=== PATIENT | female | born 1935 | race Caucasian/White ===

== ENCOUNTER 2023-04-18 06:04 | Day surgery (SDC) | payer OTHER ==
[2023-04-18] MEDS ORDERED: NA CHLORIDE 0.9% 1,000 ML ONE (06:40)
[2023-04-18] MEDS ORDERED: DEXTROSE 10%-WATER 500 ML IV ONE (06:44)
[2023-04-18] MEDS ORDERED: propofoL 200 MG/20 ML VIAL IV ONE (07:29)
[2023-04-18] MEDS ORDERED: LIDOCAINE 2% MPF 5 ML VIAL ONE (07:33)
[2023-04-18] MEDS ORDERED: SUCCINYLCHOLINE 20 MG/ML (10 ML) IV ONE (07:34)
[2023-04-18] MEDS ORDERED: NA CHLORIDE 0.9% 250 ML ONE (07:42)
[2023-04-18 09:19] VITALS: TEMP 97.2
[2023-04-18 09:20] VITALS: O2SAT 95
[2023-04-18 09:23] VITALS: BP 155/69
--- NOTE | 2023-04-19 22:58 | OP ---
Date of Procedure: 04/18/2023 Surgeon: CHEPE WILLSON Preoperative Diagnosis: Obstructive sleep apnea. Postoperative Diagnosis: Obstructive sleep apnea. Procedure: Drug-induced sleep endoscopy. Anesthesia: General anesthesia was administered via IV sedation with propofol. Estimated Blood Loss: None. Specimens: None. Findings: At least 80% anterior/posterior velopharyngeal collapse with approximately 20% lateral maura opharyngeal collapse, but no complete concentric collapse noted. Mild-moderate right nasal septal de viation with bilateral inferior turbinate hypertrophy 2+/4. Complications: None. Disposition: Stable. The patient tolerated the procedure well. Indication For Procedure: The patient is a pleasant 87-year-old female with a history of dementia, w ho has been on CPAP therapy for several years and has not tolerated the mask in the past 6 months to 1 year secondary to forgetting the putting the mask on and then at times pulling the mask off at nigh t and forgetting to remember to put it back on. Her daughter has noticed that this has been a chroni c issue and the patient is not getting adequate sleep despite adequate sleep hygiene measures. The p atient has irritability and worsening of her memory secondary to fatigue from lack of sleep. She has a daughter and grain oilseed or pasture farm worker and is well cared for independently in her residential home. The daughter does live with the patient. These were indications to bring the patient to operative suite for the a florentino-mentioned procedures. Her grain oilseed or pasture farm worker and daughter understood. All questions were answered. Ris ks versus benefits and complications were explained in detail, and a consent form was signed which wa s placed in the chart. The patient is being scoped for possible Inspire implant device insertion, wh ich requires a drug-induced sleep endoscopy. Description Of Procedure: The patient was transferred from the preoperative holding area to the oper ative suite by Department of Anesthesia, placed on the operating table supine and sedated with IV pro pofol. Once the patient was asleep, I inserted the flexible nasopharyngoscope into the right nasal c avity, but the patient had a moderate septal deviation complicated by inferior turbinate hypertrophy. Thus, I removed the scope and switched to the left nasal cavity. The scope was advanced along the floor back to the level of the nasopharynx and oropharynx. I remained in that area for approximately 3-5 minutes. We were able to obtain adequate video representation of her inhalation and exhalation pattern. I then removed or withdrew the scope and the patient tolerated it well. The patient was transferred by Department of Anesthesia in stable condition, where she was subsequent ly awakened and transferred to the postoperative care unit in stable condition. She will be discharg ed home and will follow up for further recommendations. APOLINAR/ALINA Voice ID: [id number] Report ID: [id number]
== END 2023-04-18 08:34 | disposition home or self-care (01) ==
LOC: OR 06:04
PROVIDERS: ATTEND Otolaryngology Facial Plastic Surgery
PROC: 0CJS8ZZ Inspection of Larynx, Via Natural or Artificial Opening Endoscopic (ICD-10-PCS; principal; 2023-04-18 07:30)
DX: G47.33 Obstructive sleep apnea (adult) (pediatric) (principal); F03.90 Unspecified dementia, unspecified severity, without behavioral disturbance, psychotic disturbance, mood disturbance, and anxiety
CPT/HCPCS: 82947 ×3; 42975; J2704; J2001; J7050; J7030

== ENCOUNTER 2023-05-30 07:43 | Observation (INO) | payer OTHER ==
[2023-05-30] MEDS ORDERED: FENTANYL CITR 100 MCG/2 ML ONE ×2 (07:46→10:39)
[2023-05-30] MEDS ORDERED: dexAMETHasone 10 MG/ML VIAL ONE (07:47)
[2023-05-30] MEDS ORDERED: LIDOCAINE 2% MPF 5 ML VIAL ONE (07:47)
[2023-05-30] MEDS ORDERED: ROCURONIUM 50 MG/5 ML VIAL IV ONE (07:47)
[2023-05-30] MEDS ORDERED: ONDANSETRON 4 MG/2 ML VIAL ONE (07:47)
[2023-05-30] MEDS ORDERED: propofoL 200 MG/20 ML VIAL IV ONE ×6 (07:47→13:29)
[2023-05-30] MEDS ORDERED: LIDOCAINE HCL/EPINEPHRINE 20 ML MDV ONE (08:18)
[2023-05-30] MEDS ORDERED: NA CHLORIDE 0.9% 1,000 ML ONE (08:20)
[2023-05-30] MEDS ORDERED: CEFAZOLIN SODIUM 1 GM/VIAL ONE ×2 (09:42)
[2023-05-30] MEDS ORDERED: propofoL 1,000 MG/100 ML VIAL IV ONE (11:03)
[2023-05-30] MEDS ORDERED: HYDRALAZINE HCL 20 MG/ML VIAL ONE (13:54)
[2023-05-30] MEDS ORDERED: Mastisol Adhesive Liq ONE (13:55)
[2023-05-30] MEDS: MORPHINE 4 MG/ML SYR ONE ×5 (14:30→14:58)
--- NOTE | 2023-05-30 15:09 | RAD REPORT ---
EXAM DESCRIPTION: RAD - Neck Soft Tissue - 05/30/2023 2:55 pm CLINICAL HISTORY: S/P INSPIRE PROCEDURE COMPARISON: No comparisons FINDINGS: Wiring is noted in the anterior soft tissues of the neck. Tip of the wiring appears in the submental region somewhat posteriorly.Upper cervical degenerative changes present with 3 mm degenera tive anterolisthesis of C3 on 4. No unusual or unexpected finding.
--- NOTE | 2023-05-30 15:09 | RAD REPORT ---
EXAM DESCRIPTION: RAD - Chest Single View - 05/30/2023 2:55 pm CLINICAL HISTORY: S/P INSPIRE PROCEDURE Chest pain. COMPARISON: <Comparisons> FINDINGS: Portable technique limits examination quality. The lungs are grossly clear. The heart is moderately enlarged. No displaced fractures.Right-sided sti mulator device noted. IMPRESSION: No acute intrathoracic process suspected.
--- OUTSIDE RECORDS SUMMARY | 2023-05-30 15:37 | XMS REPORT | Continuity of Care Document ---
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 fferent methodologies s hould not becompared to o ne another as quantitative results and URLs mayvary by method. [id number] 23:44:00 Test Item Value Reference Range Interpretation Comments HGBA1C% (test code = HGBA1C%) 7.8 %A1C 4.8-6.0 H GLUCOSE [id number] 22:19:00 Test Item Value Reference Range Interpretation Comments GLUCOSE BEDSIDE (test 151 MG/DL 70-110 H Perfor med by certified code = GLUBED) comparator operator at [facility] GLUCOSE [id number] 11:22:00 Test Item Value Reference Range Interpretation Comments GLUCOSE BEDSIDE (test 236 MG/DL 70-110 H Perfor med by certified code = GLUBED) comparator operator at [facility] GLUCOSE [id number] 06:40:00 Test Item Value Reference Range Interpretation Comments GLUCOSE BEDSIDE (test 123 MG/DL 70-110 H Perfor med by certified code = GLUBED) comparator operator at [facility] BASIC METABOLIC [id number] 01:28:00 Test Item Value Reference Range Interpretation Comments SODIUM (test code = 141 mEq/L 134-147 N NA) POTASSIUM (test code 3.8 mEq/L 3.4-5.0 N = K) CHLORIDE (test code 106 mEq/L 100-108 = CL) CARBON DIOXIDE (test 27 mEq/l 21-33 N code = CO2) ANION GAP (test code 12 0-20 N = GAP) GLUCOSE (test code = 117 mg/dL 70-110 H GLU) BLOOD UREA NITROGEN 21 mg/dL 7-18 H (test code = BUN) GLOMERULAR 16.9 70-80 L The Glomerular FILTRATION RATE Filtration R ate is a (test code = GFR) calculated parameterbased on serum Creatinine, pat ient age and sex. GFR va luesless than 60 mL/min/ 1.73 square meters a re indicative ofCh ronic Kidney Disease. Values less than 15 mL/min/1.73squa re meters indicate Kidney failure. The calculation forGFR is based on the CKD-EPI (2020) calculat ion. This formulais race indifferent and is the recommended for brittney for GFRby the [facility] Kidney Foundati on for Adults.The GFR will not calculate if th e sex is unknown or if thepatient's ag e is <18 years. CREATININE (test 2.7 mg/dL 0.6-1.3 H code = CREAT) CALCIUM (test code = 9.0 mg/dL 8.0-10.5 N CA) TROP-I HIGH [id number] 01:28:00 Test Item Value Reference Range Interpretation Comments TROP-I HIGH 203 ng/L 0-34 HH CAUTION: Units of the SENSITIVITY (test current te st methodology code = TROPIHS) (ng/L) diffe rfrom the prior test meth odology (ng/mL) by a fa ctor of 1000. 99t h Percentile Uppe r Reference Limit (URL): Fe males: 34 ng/LMales: 54 n g/L In order to distin guish acute elevations of h igh sensitivitytrop onin from other clinical conditions, the FourthUnive rsal Definition of M yocardial Infarction stressesclinica l assessment and the demonstration o f a rise and/orfall in s erial troponin result s above the URL. These resu lts were obtained using Siem[employer] IM TnI Hreagent. Results from di fferent methodologies s hould not becompared to o ne another as quantitative results and URLs mayvar y by method. CBC W/AUTO [id number] 01:07:00 Test Item Value Reference Range Interpretation Comments WHITE BLOOD CELL (test code = 8.0 x10 3/uL 4.5-11.0 N WBC) RED BLOOD CELL (test code = 3.45 x10 6/uL 3.54-5.02 L RBC) HEMOGLOBIN (test code = HGB) 10.6 g/dL 11.0-15.0 L HEMATOCRIT (test code = HCT) 31.6 % 33.0-45.0 L MEAN CELL VOLUME (test code = 91.6 fL 81.0-99.0 N MCV) MEAN CELL HGB (test code = MCH) 30.7 pg 27.0-33.0 N MEAN CELL HGB CONCETRATION 33.5 g/dL 33.0-37.0 N (test code = MCHC) RED CELL DISTRIBUTION WIDTH CV 14.1 % 11.5-14.5 N (test code = RDW) RED CELL DISTRIBUTION WIDTH SD 47.5 fL 37.0-54.0 N (test code = RDW-SD) PLATELET COUNT (test code = 170 x10 3/uL 150-400 N PLT) MEAN PLATELET VOLUME (test code 10.2 fL 7.0-9.0 H = MPV) NEUTROPHIL % (test code = NT%) 67.9 % 56.0-77.0 N IMMATURE GRANULOCYTE % (test 0.7 % 0.0-2.0 N code = IG%) LYMPHOCYTE % (test code = LY%) 19.5 % 14.0-32.0 N MONOCYTE % (test code = MO%) 8.2 % 4.8-9.0 N EOSINOPHIL % (test code = EO%) 3.2 % 0.3-3.7 N BASOPHIL % (test code = BA%) 0.5 % 0.0-2.0 N NUCLEATED RBC % (test code = 0.0 % 0-0 N NRBC%) NEUTROPHIL # (test code = NT#) 5.43 x10 3/uL 2.0-7.6 N IMMATURE GRANULOCYTE # (test 0.06 x10 3/uL 0.00-0.03 H code = IG#) LYMPHOCYTE # (test code = LY#) 1.56 x10 3/uL 1.0-3.8 N MONOCYTE # (test code = MO#) 0.66 x10 3/uL 0.1-0.8 N EOSINOPHIL # (test code = EO#) 0.26 x10 3/uL 0.0-0.2 H BASOPHIL # (test code = BA#) 0.04 x10 3/uL 0.0-0.2 N NUCLEATED RBC # (test code = 0.00 x10 3/uL 0.0-0.1 N NRBC#) MANUAL DIFF REQUIRED (test code NO = MDIFF) TROP-I HIGH [id number] 23:20:00 Test Item Value Reference Range Interpretation Comments TROP-I HIGH 128 ng/L 0-34 HH Critical result called to SENSITIVITY (test CHANDRA Rai RNby code = TROPIHS) Wendy.LA50 a t 2320 09/12/22Nurse r ead back result and tech confirmed it's correct? Y ESCAUTION: Units of the cu rrent test methodology (ng /L) differfrom the prior test methodology (ng /mL) by a factor of 1000. 99t h Percentile Uppe r Reference Limit (URL): Fe males: 34 ng/LMales: 54 n g/L In order to distin guish acute elevations of h igh sensitivitytrop onin from other clinical conditions, the FourthUnive rsal Definition of M yocardial Infarction stressesclinica l assessment and the demonstration o f a rise and/orfall in s erial troponin result s above the URL. These resu lts were obtained using [employer]ens [employer] IM TnI Hreagent. Results from di fferent methodologies s hould not becompared to o ne another as quantitative results and URLs mayvar y by method. B-TYPE NATRIURETIC [id number] 20:13:00 Test Item Value Reference Range Interpretation Comments B-TYPE NATRIURETIC PEPTIDE (test 106.0 PG/ML 0-100 H code = BNP) LIPOPROTEIN [id number] 20:12:00 Test Item Value Reference Range Interpretation Comments LIPOPROTEIN LDL 143.2 mg/dL 0-100 H <100 OPTIMAL 100-129 (test code = LDL) NEAR OPTIM AL/ABOVE [id number] HIGH>LT=580 DEE Y HIGH*Guidelines provided by the National Choles terol EducationProgra m Adult Treatment Panel III TROP-I HIGH [id number] 19:54:00 Test Item Value Reference Range Interpretation Comments TROP-I HIGH 102 ng/L 0-34 H CAUTION: Units of the SENSITIVITY (test current te st methodology code = TROPIHS) (ng/L) diffe rfrom the prior test meth odology (ng/mL) by a fa ctor of 1000. 99t h Percentile Uppe r Reference Limit (URL): Fe males: 34 ng/LMales: 54 n g/L In order to distin guish acute elevations of h igh sensitivitytrop onin from other clinical conditions, the FourthUnive rsal Definition of M yocardial Infarction stressesclinica l assessment and the demonstration o f a rise and/orfall in s erial troponin result s above the URL. These resu lts were obtained using [employer] IM TnI Hreagent. Results from di fferent methodologies s hould not becompared to o ne another as quantitative results and URLs mayvar y by method. BASIC METABOLIC [id number] 19:54:00 Test Item Value Reference Range Interpretation Comments SODIUM (test code = 137 mEq/L 134-147 N NA) POTASSIUM (test code 4.0 mEq/L 3.4-5.0 N = K) CHLORIDE (test code 100 mEq/L 100-108 N = CL) CARBON DIOXIDE (test 27 mEq/l 21-33 N code = CO2) ANION GAP (test code 14 0-20 N = GAP) GLUCOSE (test code = 278 mg/dL 70-110 H GLU) BLOOD UREA NITROGEN 20 mg/dL 7-18 H (test code = BUN) GLOMERULAR 19.4 70-80 L The Glomerular FILTRATION RATE Filtration R ate is a (test code = GFR) calculated parameterbased on serum Creatinine, pat ient age and sex. GFR va luesless than 60 mL/min/ 1.73 square meters a re indicative ofCh ronic Kidney Disease. Values less than 15 mL/min/1.73squa re meters indicate Kidney failure. The calculation forGFR is based on the CKD-EPI (2020) calculat ion. This formulais race indifferent and is the recommended for brittney for GFRby the [facility] n[facility] Kidney Foundati on for Adults.The GFR will not calculate if th e sex is unknown or if thepatient's ag e is <18 years. CREATININE (test 2.4 mg/dL 0.6-1.3 H code = CREAT) CALCIUM (test code = 8.8 mg/dL 8.0-10.5 N CA) [id number] 19:54:00 Test Item Value Reference Range Interpretation Comments MAGNESIUM (test code = MAG) 1.89 mg/dL 1.80-2.40 N TSH REFLEX TO [id number] 19:54:00 Test Item Value Reference Range Interpretation Comments TSH REFLEX TO FT4 (test code = 1.80 IU/mL 0.42-5.47 N TSHREFLEX) CBC W/AUTO [id number] 19:53:00 Test Item Value Reference Range Interpretation Comments WHITE BLOOD CELL (test code = 8.1 x10 3/uL 4.5-11.0 N WBC) RED BLOOD CELL (test code = 3.57 x10 6/uL 3.54-5.02 N RBC) HEMOGLOBIN (test code = HGB) 10.9 g/dL 11.0-15.0 L HEMATOCRIT (test code = HCT) 33.0 % 33.0-45.0 N MEAN CELL VOLUME (test code = 92.4 fL 81.0-99.0 N MCV) MEAN CELL HGB (test code = MCH) 30.5 pg 27.0-33.0 N MEAN CELL HGB CONCETRATION 33.0 g/dL 33.0-37.0 N (test code = MCHC) RED CELL DISTRIBUTION WIDTH CV 14.0 % 11.5-14.5 N (test code = RDW) RED CELL DISTRIBUTION WIDTH SD 47.7 fL 37.0-54.0 N (test code = RDW-SD) PLATELET COUNT (test code = 206 x10 3/uL 150-400 N PLT) MEAN PLATELET VOLUME (test code 10.7 fL 7.0-9.0 H = MPV) NEUTROPHIL % (test code = NT%) 75.6 % 56.0-77.0 N IMMATURE GRANULOCYTE % (test 0.9 % 0.0-2.0 N code = IG%) LYMPHOCYTE % (test code = LY%) 14.7 % 14.0-32.0 N MONOCYTE % (test code = MO%) 6.4 % 4.8-9.0 N EOSINOPHIL % (test code = EO%) 1.9 % 0.3-3.7 N BASOPHIL % (test code = BA%) 0.5 % 0.0-2.0 N NUCLEATED RBC % (test code = 0.0 % 0-0 N NRBC%) NEUTROPHIL # (test code = NT#) 6.11 x10 3/uL 2.0-7.6 N IMMATURE GRANULOCYTE # (test 0.07 x10 3/uL 0.00-0.03 H code = IG#) LYMPHOCYTE # (test code = LY#) 1.19 x10 3/uL 1.0-3.8 N MONOCYTE # (test code = MO#) 0.52 x10 3/uL 0.1-0.8 N EOSINOPHIL # (test code = EO#) 0.15 x10 3/uL 0.0-0.2 N BASOPHIL # (test code = BA#) 0.04 x10 3/uL 0.0-0.2 N NUCLEATED RBC # (test code = 0.00 x10 3/uL 0.0-0.1 N NRBC#) MANUAL DIFF REQUIRED (test code NO = MDIFF) - XR CHEST 1 [id number] 00:00:00 [facility] : 1935 Sex: F FAX: David Castillo [place]: [address]: REG Name: MNOICA BAUTISTA [facility] : 1935 Age/S: 86/F [address] [place] [address] Bl Unit #: [id number] Loc: [place] [address] Phys: David Castillo MD Acct: [id number] Dis Date: Status: REG ER PHONE #: [phone] Exam Date: 09/12/2022 183 FAX #: [phone] Reason: Chest Pain EXAMS: CPT CODE: [id number] XR CHEST 1 V [id number] PROCEDURE INFORMATION: Exam: XR Chest Exam date and time: 09/12/2022 6:31 PM Age: 86 years old Clinical indication: Other: Chest pain TECHNIQUE: Imaging protocol: Radiologic exam of the chest. Views: 1 view. COMPARISON: No relevant prior studies available. FINDINGS: Lungs: The thorax shows mildly decreased lung volumes. No focal lung consolidation. Pleural spaces: No appreciable effusions or pneumothorax. Mildly elevated right hemidiaphragm, probably chronic. Heart/Mediastinum: Heart is borderline size. Calcified plaques in aortic arch. The pulmonary vasculature is normal. The trachea is midline. Bones/joints: No acute abnormality seen. IMPRESSION: No acute cardiopulmonary findings. at 1929 Reported and signed by: Sarbjit Dumont M.D. CC: David Castillo MD Technologist: Vanessa Alfaro RT(R) Trnscrd Date/Time/By: 09/12/2022 (1928) : By: [email or web address] Orig Print D/T: S: 09/12/2022 (1928) PAGE 1 Signed Report
[2023-05-30 16:01] VITALS: BMI 30.6
[2023-05-30] MEDS: CEFAZOLIN 2 GM in NA CHLORIDE 0.9% 100 ML IVPB SCH (16:34)
[2023-05-30] MEDS ORDERED: INFLUENZA VACCINE (for 6+ mo) 0.5 ML DOSE IMVAC ONE (18:00)
[2023-05-30] MEDS ORDERED: HYDROCODONE/APAP 5/325 MG TAB PO PRN (18:09)
[2023-05-30] MEDS ORDERED: FUROSEMIDE 40 MG TABLET PO SCH (19:00)
[2023-05-30] MEDS: TRAMADOL HCL 50 MG TAB PO PRN (20:37)
[2023-05-30] MEDS ORDERED: GLUCAGON 1 MG/VIAL IM PRN (20:52)
[2023-05-30] MEDS ORDERED: D50W 25 GM/50 ML SYRINGE IV PRN (20:52)
[2023-05-30] MEDS ORDERED: D10W 125 ML IV PRN (21:00)
[2023-05-30] MEDS ORDERED: LATANOPROST OPTH SCH (21:00)
[2023-05-30] MEDS ORDERED: ISOSORBIDE MONONITRATE 120 MG PO SCH (21:00)
[2023-05-30] MEDS ORDERED: DONEPEZIL HCL 5 MG TAB PO SCH (21:00)
[2023-05-30] MEDS: INSULIN REGULAR (HUMAN) 100 UNIT/ML SQ SCH (21:32)
[2023-05-30] MEDS: HYDRALAZINE HCL 25 MG TABLET PO SCH (21:32)
[2023-05-30] MEDS ORDERED: MORPHINE 2 MG/ML SYR IV PRN (23:09)
[2023-05-31 00:21] VITALS: O2SAT 94
[2023-05-31] MEDS: CEFAZOLIN 2 GM in NA CHLORIDE 0.9% 100 ML IVPB SCH ×3 (00:26→17:07)
[2023-05-31 03:06] LABS: Absolute Lymphocytes (CBC) 0.6 K/uL (0.7-4.9); Hematocrit 32.8 % (36.0-45.0); Lymphocytes % 5.6 % (15.3-44.8); MCV 93.2 fL (80-100); MPV 9.5 fL (7.6-11.3); Platelets 155 thou/uL (152-406); RBC Red Blood Cell Count 3.52 M/uL (3.86-4.86)
[2023-05-31 03:30] LABS: Potassium 4.8 mEq/L (3.5-5.1)
[2023-05-31] MEDS: INSULIN REGULAR (HUMAN) 100 UNIT/ML SQ SCH ×3 (07:30→16:30)
[2023-05-31] MEDS: SEVELAMER HCL 800 MG PO SCH ×3 (08:00→17:00)
[2023-05-31] MEDS ORDERED: Linagliptin [Tradjenta] 5 MG Tablet PO SCH (09:00)
[2023-05-31] MEDS ORDERED: AMLODIPINE 10 MG TAB PO SCH (09:00)
[2023-05-31] MEDS ORDERED: VALSARTAN 80 MG TAB PO SCH (09:00)
[2023-05-31] MEDS ORDERED: GALANTAMINE HBR 16 MG PO SCH (09:00)
[2023-05-31] MEDS: HYDRALAZINE HCL 25 MG TABLET PO SCH ×2 (09:39→14:00)
--- NOTE | 2023-05-31 11:32 | P.CNS ---
Date of Consult: 05/31/23 Reason for Consult: ESRD, BP/volume management Requesting Physician: Olman Fang Chief Complaint: Elective admission for hypoglossal nerve stimulator implant History of Present Illness: Pt is a 87 yo elderly female with a hx of chronic HTN, DM with unspecified complications other than ESRD on iHD MWF at [facility] who was admitted electively for a hypoglossal nerve stimulator implant for LUIS A. Pt is in stable condition post surgery, she denies any significant pain, no reported bleeding from surgical sites and no dysphagia. She denies CP or dyspnea. Allergies acetaminophen Allergy (Verified 05/30/23 09:30) Facial Swelling streptomycin Allergy (Verified 05/30/23 09:30) Swelling/Nausea/Vomiting Home Medications: Amlodipine Besylate 10 mg PO DAILY 04/15/23 Donepezil [Aricept*] 5 mg PO BEDTIME 04/15/23 Furosemide [Lasix*] 40 mg PO DIRECTED 04/15/23 Galantamine HBr [Galantamine ER] 16 mg PO DAILY 04/15/23 Glimepiride 4 mg PO BID 04/15/23 Hydralazine HCl 100 mg PO TID 04/15/23 Isosorbide Mononitrate [Isosorbide Mononitrate ER] 2 tab PO BEDTIME 04/15/23 Latanoprost Ophth [Xalatan 0.005%*] 2.5 ml EACH EYE BEDTIME 04/15/23 Linagliptin [Tradjenta] 5 mg PO DAILY 04/15/23 Sevelamer HCl [Renagel] 800 mg PO TIDWM 04/15/23 Valsartan [Diovan] 80 mg PO DAILY 04/15/23 - Social History Alcohol use: No CD- Drugs: No Caffeine use: Yes Place of Residence: Home Review of Systems General: Unremarkable Eyes: Unremarkable ENT: As per HPI Respiratory: Unremarkable Cardiovascular: Unremarkable Gastrointestinal: Unremarkable Musculoskeletal: Unremarkable Integumentary: Unremarkable Neurological: Unremarkable Physical Examination Temp Pulse Resp BP Pulse Ox 97.0 F 75 17 156/71 H 92 05/31/23 08:00 05/31/23 09:40 05/31/23 08:00 05/31/23 09:40 05/31/23 08:00 General: Alert, In no apparent distress, Cooperative HEENT: Normocephalic, EOMI Neck: Other (Surgical sites covered with dressing, no drains noted) Respiratory: Normal air movement, Other (No rhonchi) Cardiovascular: Regular rate/rhythm, Normal S1 S2 Gastrointestinal: Soft and benign, Non-distended, No tenderness Musculoskeletal: No swelling, No tenderness Integumentary: No rashes Neurological: Normal speech, Normal affect Laboratory Data (last 24 hrs) 05/31/23 05/31/23 02:00 02:00 WBC 10.80 Hgb 11.0 L Hct 32.8 L Plt Count 155 Sodium 133 L Potassium 4.8 BUN 52 H Creatinine 5.13 H Glucose 320 H Conclusions/Impression: A/P) 1. ESRD 2nd to chronic conditions, on iHD MWF -will plan for HD today to maintain OP schedule. See orders for details 2. Pre dialysis metab profile stable 3. Chronic HTN with CKD/ESRD -f/u post HD BP, BP can be accelerated at times, cont home meds 4. Type II DM with hyperglycemia -need to review pt's home insulin regimen and restart any basal Insulin as BG here have been > 200 last night and overnight although lower this AM. Cosmo Fields MD, AMIRAH
--- NOTE | 2023-05-31 12:07 | P.HP ---
Certification for Inpatient Patient admitted to: Observation With expected LOS: <2 Midnights Practitioner: I am a practitioner with admitting privileges, knowledge of patient current condition, hospital course, and medical plan of care. Services: Services provided to patient in accordance with Admission requirements found in Title 42 Section 412.3 of the Code of Federal Regulations Patient History Date of Service: 05/31/23 Reason for admission: Elective admission for hypoglossal nerve stimulator implant History of Present Illness: Patient is 87 years of age was referred to Dr. Rosa for evaluation for inspire she is hypoglossal nerve stimulator currently was a prolonged surgery patient remained stable was admitted for observation to the hospital this morning she is alert oriented responsive cooperative denies any complaints history of sleep apnea failed CPAP treatment denies any pain Allergies acetaminophen Allergy (Verified 05/30/23 09:30) Facial Swelling streptomycin Allergy (Verified 05/30/23 09:30) Swelling/Nausea/Vomiting Home Medications: Amlodipine Besylate 10 mg PO DAILY 04/15/23 Donepezil [Aricept*] 5 mg PO BEDTIME 04/15/23 Furosemide [Lasix*] 40 mg PO DIRECTED 04/15/23 Galantamine HBr [Galantamine ER] 16 mg PO DAILY 04/15/23 Glimepiride 4 mg PO BID 04/15/23 Hydralazine HCl 100 mg PO TID 04/15/23 Isosorbide Mononitrate [Isosorbide Mononitrate ER] 2 tab PO BEDTIME 04/15/23 Latanoprost Ophth [Xalatan 0.005%*] 2.5 ml EACH EYE BEDTIME 04/15/23 Linagliptin [Tradjenta] 5 mg PO DAILY 04/15/23 Sevelamer HCl [Renagel] 800 mg PO TIDWM 04/15/23 Valsartan [Diovan] 80 mg PO DAILY 04/15/23 - Past Medical/Surgical History -: Dialysis -: Sleep apnea -: Diabetes -: Hypoglossal nerve implantation - Social History Smoking Status: Never smoker Alcohol use: No CD- Drugs: No Caffeine use: Yes Place of Residence: Home Review of Systems 10-point ROS is otherwise unremarkable Physical Examination - Vital Signs Temperature: 97.0 F Blood Pressure: 156/71 Pulse: 75 Respirations: 17 Pulse Ox (%): 92 - Physical Exam General: Alert, Oriented x3 Respiratory: Clear to auscultation bilaterally Cardiovascular: No edema, Regular rate/rhythm, Normal S1 S2 - Studies Laboratory Data (last 24 hrs) 05/31/23 05/31/23 02:00 02:00 WBC 10.80 Hgb 11.0 L Hct 32.8 L Plt Count 155 Sodium 133 L Potassium 4.8 BUN 52 H Creatinine 5.13 H Glucose 320 H Assessment and Plan - Problems (Diagnosis) (1) Obstructive sleep apnea Current Visit: Yes Status: Acute Plan: Patient is 87 years of age with a history of obstructive sleep apnea failed CPAP therapy was admitted for hypoglossal nerve implantation by Dr. Rosa procedure according to Dr. Rosa was complicated took longer than usual she was admitted to the hospital for observation there was no problems during the stay patient to have her dialysis and discharged home follow-up with Dr. Rosa and myself denies any pain there is no evidence of any bleeding Labs reviewed Discharge Plan: Home - Advance Directives Does patient have a Living Will: No Does patient have a Durable POA for Healthcare: No
--- NOTE | 2023-05-31 12:10 | P.DS ---
Admission Date: 05/30/23 Discharge Date: 05/31/23 Disposition: ROUTINE DISCHARGE Discharge Condition: FAIR Reason for Admission: Elective admission for hypoglossal nerve stimulator implant - Problems (1) Obstructive sleep apnea Current Visit: Yes Status: Acute Brief History of Present Illness: Patient is 87 years of age was referred to Dr. Rosa for evaluation for inspire she is hypoglossal nerve stimulator currently was a prolonged surgery patient remained stable was admitted for observation to the hospital this morning she is alert oriented responsive cooperative denies any complaints history of sleep apnea failed CPAP treatment denies any pain Hospital Course: Patient is 87 years of age please see my H&P from today she was admitted for hypoglossal nerve implantation surgery took longer than usual patient was admitted here for observation her observation was unremarkable her vital signs all stable labs all reviewed patient has end-stage renal disease on dialysis was also seen by nephrology plan to discharge her today after dialysis and to follow-up with Dr. Rosa and myself as per schedule Vital Signs/Physical Exam: Temp Pulse Resp BP Pulse Ox 97.0 F 75 17 156/71 H 92 05/31/23 12:09 05/31/23 12:09 05/31/23 12:09 05/31/23 12:09 05/31/23 12:09 Laboratory Data at Discharge: WBC 10.80 thou/uL (4.3-10.9) 05/31/23 02:00 Hgb 11.0 g/dL (12.0-15.0) L 05/31/23 02:00 Hct 32.8 % (36.0-45.0) L 05/31/23 02:00 Plt Count 155 thou/uL (152-406) 05/31/23 02:00 Sodium 133 mEq/L (136-145) L 05/31/23 02:00 Potassium 4.8 mEq/L (3.5-5.1) 05/31/23 02:00 BUN 52 mg/dL (7-18) H 05/31/23 02:00 Creatinine 5.13 mg/dL (0.55-1.02) H 05/31/23 02:00 Glucose 320 mg/dL (74-106) H 05/31/23 02:00 Home Medications: Amlodipine Besylate 10 mg PO DAILY 04/15/23 Donepezil [Aricept*] 5 mg PO BEDTIME 04/15/23 Furosemide [Lasix*] 40 mg PO DIRECTED 04/15/23 Galantamine HBr [Galantamine ER] 16 mg PO DAILY 04/15/23 Glimepiride 4 mg PO BID 04/15/23 Hydralazine HCl 100 mg PO TID 04/15/23 Isosorbide Mononitrate [Isosorbide Mononitrate ER] 2 tab PO BEDTIME 04/15/23 Latanoprost Ophth [Xalatan 0.005%*] 2.5 ml EACH EYE BEDTIME 04/15/23 Linagliptin [Tradjenta] 5 mg PO DAILY 04/15/23 Sevelamer HCl [Renagel] 800 mg PO TIDWM 04/15/23 Valsartan [Diovan] 80 mg PO DAILY 04/15/23 Followup: Riki Oh DO [Primary Care Provider] -
[2023-05-31 15:10] LABS: Hepatitis B Surface Ab - Quant > 1000.00 mIU/mL (<8.0); Hepatitis B surface AG Interp. Nonreactive (Nonreactive)
[2023-05-31] MEDS: TRAMADOL HCL 50 MG TAB PO PRN (15:59)
[2023-05-31 16:51] VITALS: BP 188/79; TEMP 97.5
--- NOTE | 2023-06-01 19:35 | OP ---
Date of Procedure: 05/30/2023 Surgeon: CHEPE WILLSON Preoperative Diagnoses: 1.Moderate to severe obstructive sleep apnea with positive airway pressure, intolerant. 2.BMI between 31.0 and 31.9. Postoperative Diagnoses: 1.Moderate to severe obstructive sleep apnea with positive airway pressure, intolerant. 2.BMI between 31.0 and 31.9. Procedures: 1.Insertion of hypoglossal nerve neurostimulator electrode and generator and breathing sensor electr ode. 2.Twelfth cranial nerve hypoglossal stimulation implant with placement of chest wall respiratory sen sor. 3.Nerve integrity monitoring system, monitoring both the hyoglossus and the genioglossus muscles. 4. Anesthesia: General endotracheal anesthesia was administered. We also infiltrated approximately 10 mL of 1% lidocaine with 1:100,000 epinephrine at the right upper neck and right chest incision site. Estimated Blood Loss: Approximately 15 to 20 mL. Specimens: None. Findings: Right hypoglossal nerve and hyoglossus nerve were stimulated and found by direct visualiza tion under loupe magnification. The patient had significant fatty tissue involving the right upper n kelli and right chest. Complications: None. Disposition: Stable. The patient tolerated the procedure well. Indications For Procedure: Patient is a pleasant 87-year-old female who presented to my outpatient c linic with a history of dementia and obstructive sleep apnea in which she was utilizing a CPAP ashley e, but was becoming intolerant in that the patient would keep forgetting to put the mask on and if sh e did wear the mask if she woke up in the middle of the night, the mask would not be placed on her fa ce as she would forget frequently to replace it. Ledger Poster and daughter were concerned about her day time behavior in that the patient's memory was worsening and she had mood instability and evidence of fatigue and lack of sleep. Thus these were indications to bring the patient to operative suite for the above-mentioned procedure. Patient and caretakers understood. All questions were answered. Ris ks versus benefits and complications were explained in detail and a consent form was signed, and was placed on the chart. Description Of Procedure: Patient was transferred from the preoperative holding area to the operativ e suite by Department of Anesthesia, placed on the operating room table supine, sedated, intubated in the normal fashion. Table was rotated 180 degrees and a shoulder roll was placed and we extended an d rotated the head to the left in order to expose the right upper neck. The nerve integrity monitori ng system, electrodes were placed into the body of the hyoglossus and genioglossus muscles and calibr ated and found to be working appropriately. The patient was sterilely prepped and draped and then I made a modified submandibular incision in the right upper neck approximately 1 to 2 cm below the mandible. Dissection was carried down through th e subcutaneous tissue and platysma and then the anterior inferior border of the submandibular gland w as identified as well as the digastric tendon. The submandibular gland and the overlying fascia with the marginal mandibular nerve were retracted posteriorly. The digastric tendon was retracted inferi kalli. Dissection continued down to the digastric triangle and the posterior border of the mylohyoid was freed up and retracted anteriorly. With balance retraction, the hypoglossal nerve was identified in its usual fashion and was dissected up toward the floor of the mouth. The superior and posterior branches innervating the hyoglossus muscle were identified using the NIMs stimulator and anatomical cues. The cuff electrode for the hypoglossal nerve stimulator was placed distally to these branches innervating the genioglossus transverse in cervical and vertical muscles. The stimulation lead was a nchored to the digastric tendon using two 3-0 silk sutures and laid body flat between the cuff and th e anchor gently tucked deep to the submandibular gland. Next, a second 5 cm incision was made in the right upper chest over the second intercostal space appr oximately 3 cm lateral to the sternal margin. Dissection was carried down through the skin and subcu taneous tissue to the fascia of the pectoralis muscle. Patient had a significant amount of fatty tis barbra before arriving at the pectoralis muscle. An inferior pocket for the generator was created deep to the subcutaneous layer and superficial to the fascia of the pectoralis muscle. Pectoralis major f ascia was dissected directly over the second intercostal space with subsequent blunt dissection throu gh the muscle. The pectoralis major/minor muscle was then retracted to expose the fatty layer just s uperficial to the external intercostal muscles. The fatty layer was carefully swept away to expose t he external intercostal muscles. Base knot was placed to the fascia of the external intercostals jus t lateral to the anterior external membrane using a 3-0 silk suture. A fasciotomy through the data communications analyst al intercostals was performed approximately 5 mm lateral to the suture knot and a respiratory sense l ead was advanced with the sensor facing the pleura into the inner fascial space between the external and internal intercostals. The primary angle was then sutured in place with 3-0 silk on the external intercostals. The secondary anchor was sutured with 3-0 silk to the pectoralis major, allowing adeq uate slack between the anchors. The stimulation lead was then tunneled in a subplatysmal plane in e neck with blunt dissection under direct visualization and brought out from the neck incision into t subclavicular pocket where both the stimulation and respiratory sensing leads were connected in e implantable pulse generator using the 2-person, 3-handed approach. The implantable pulse generator was placed in the subclavicular pocket ensuring that the lead body was deep to the generator and sec ured with use of air knots to the pectoralis fascia using 2-0 silk sutures. Diagnostic evaluation co nfirmed good placement of the stimulation cuff as demonstrated by activation of the genioglossus and transverse and vertical muscles resulting in unhindered stiffened tongue protrusion confirmed visuall y. Diagnostic evaluation also confirmed good respiratory sensor placement as demonstrated by sensing waveform with good rise and fall associated with patient's respirations. All wounds were thoroughly irrigated and closed in 3 layers with deep 3-0 Vicryl sutures and then the epidermis and dermal laye rs were closed in a subcuticular fashion with 4-0 Monocryl. Mastisol and Steri-Strips were applied f ollowed by pressure dressings. Patient was then awakened, extubated, and transferred to the recovery room in stable condition. Due to the patient's multiple medical comorbidities and the fact that she needed dialysis the following day, it was recommended that she stay overnight and obtain her dialysi s before being discharged to home the following day. She tolerated the procedure well. APOLINAR/ALINA Voice ID: [id number] Report ID: [id number]
--- NOTE | 2023-06-02 12:16 | PN ---
Date of Progress Note: 05/31/2023 Subjective: The patient is awake, alert, and oriented at bedside with minimal pain that is being controlled with tramadol. She denies any airway compression and minimal swelling and tenderness. Objective: Examination reveals that compressive dressings are intact. I did remove both of them and replaced them with gauze and silk tape. The patient tolerated it well. There was no evidence of a hematoma, active bleeding, or seroma. Diagnoses: Obstructive sleep apnea, status post hypoglossal nerve stimulator implantation, tolerated well, status post dialysis. Recommendations: The patient will be discharged home after Dr. Manning has seen the patient. The patient has completed dialysis, which upon my arrival to bedside it was shortly thereafter, she returned to the room. Continue oral antibiotics and tramadol for pain medication and the patient will follow up in 3 days for postoperative visit and the patient will also follow up with Dr. Manning as instructed. APOLINAR/ALINA Voice ID: [id number] Report ID: [id number] JOSÉ LUIS
--- NOTE | 2023-06-02 12:31 | PN ---
Date of Progress Note: 05/30/2023 Chief Complaint: Status post hypoglossal nerve stimulator, postoperative note to check on patient af ter being placed in observation. Subjective: Upon arrival to bedside, patient was awake. She stated that she does have right neck an d chest tenderness, but denies any airway difficulty issues with swallowing. Tongue pain is mild and pain is being controlled with tramadol. Physical Examination: Compressive dressings are intact located in the right level 1 neck and right chest between ribs 2 and 3. There is no evidence of hematoma or active bleeding. Lateral neck and AP chest x-rays were performed postoperatively and stated that the stimulation leads were intact with no evidence of pneumothorax. Impression: Obstructive sleep apnea, status post hypoglossal nerve stimulator implantation, stable. Recommendations: 1.Dr. Olman Fang was consulted for medical management. 2.Patient to get dialysis in the hospital on 05/31/2023 before being discharged home. 3.Pain management and continue Ancef antibiotics 2 g q.8 hours. KD/MODL Voice ID: [id number] Report ID: [id number]
== END 2023-05-31 18:15 | disposition home or self-care (01) ==
LOC: OR 07:43 → 2ND 15:15
PROVIDERS: ADMIT Internal Medicine Sleep Medicine; ATTEND Internal Medicine Sleep Medicine
PROC: 0JH63MZ Insertion of Stimulator Generator into Chest Subcutaneous Tissue and Fascia, Percutaneous Approach (ICD-10-PCS; principal; 2023-05-30 08:45)
DX: G47.33 Obstructive sleep apnea (adult) (pediatric) (principal); I10 Essential (primary) hypertension; E11.9 Type 2 diabetes mellitus without complications; N18.6 End stage renal disease; Z68.31 Body mass index [BMI] 31.0-31.9, adult; Z99.2 Dependence on renal dialysis; Z88.3 Allergy status to other anti-infective agents; Z88.6 Allergy status to analgesic agent
CPT/HCPCS: 85025; 80048; 36415; 84132; 82947 ×7; 87340; 86706; 71045; 70360; 64582; J1815; J2704 ×7; J0360; J2001; J3010 ×2; J1100; J2270; J1644; J2405; G0378 ×3; J7030; J0690 ×6; G0379